=== PATIENT | female | born 1990 | race Caucasian/White ===

== ENCOUNTER 2017-12-28 17:53 | Emergency (ER) | payer BC, OTHER ==
[2017-12-28 18:02] VITALS: BP 112/76
[2017-12-28] MEDS ORDERED: KETOROLAC 15 MG/1 ML SDV ONE (18:24)
[2017-12-28] MEDS ORDERED: KETOROLAC 30 MG/1 ML SDV IM ONE (18:27)
--- NOTE | 2017-12-28 18:49 | EDPHY ---
H & P Time Seen by Provider: 12/28/17 18:00 HPI/ROS: CHIEF COMPLAINT: Back pain History by patient HISTORY OF PRESENT ILLNESS: 27-year-old woman with a history of prior episodes of acute back pain presents complaining of severe bilateral lower back pain which began yesterday when she lifted her 2-year-old daughter and felt that her "back went out". Patient states she had a similar episode 2 weeks ago where she felt like she threw her back out but this had resolved until yesterday. She has had similar episodes in the past last 1 was over 2 years ago. She denies any fever chills or nausea or vomiting. She denies any dysuria urgency frequency or hematuria. She has some chronic stress incontinence but denies any loss of perineal sensation or bowel incontinence. She has had some numbness to her bilateral lateral thighs but no numbness or tingling below her knees. Pain is worse with almost any movement and particularly when she changes position. There is no good position of relief. She has taken ibuprofen and Flexeril but she had left over from her prior episode with minimal relief. She denies any injection drug use. She is not on steroids and does not have diabetes. Patient works as an rn new graduate. REVIEW OF SYSTEMS: As in HPI, and all other systems reviewed and are negative Smoking Status: Never smoked Physical Exam: General Appearance: Alert, uncomfortable appearing, nontoxic. Head: Normocephalic, atraumatic Eyes: Pupils equal and round, no pallor or injection. ENT, Mouth: Mucous membranes moist. Neck: No bony tenderness, full range of motion Gastrointestinal: Abdomen is soft and nontender, no masses, bowel sounds normal. Neurological: Awake, alert and oriented x 3, no pronator drift, normal gait, no pronator drift, DTRs 2+ and equal bilaterally in knees and unable to obtain ankle reflexes bilaterally, positive ipsilateral hip pain with straight leg raise, perianal sensation intact Back: Mild sacral tenderness, bilateral paraspinous muscle tenderness in lower lumbosacral area, no CVA tenderness, normal gait Skin: Warm and dry, no rashes. Musculoskeletal: Neck is supple, FROM, nontender. Extremities: symmetrical, full range of motion. Psychiatric: Patient has normal affect, there is no agitation. Constitutional: Initial Vital Signs Temperature (C) 36.7 C 05/20/18 17:58 Heart Rate 84 12/28/17 17:58 Respiratory Rate 18 12/28/17 17:58 Blood Pressure 112/76 12/28/17 17:58 O2 Sat (%) 97 12/28/17 17:58 O2 Delivery Mode Room Air Allergies/Adverse Reactions: amoxicillin Allergy (Verified 12/28/17 17:58) erythromycin base Allergy (Verified 12/28/17 17:58) latex Allergy (Verified 12/28/17 17:58) Penicillins Allergy (Verified 12/28/17 17:58) Home Medications: Medication Instructions Recorded Lidocaine [Lidoderm] 1 each TP DAILY PRN #30 adh..patch 12/28/17 Meloxicam 7.5 mg PO DAILY #10 tablet 12/28/17 Methocarbamol [Robaxin 500 mg (*)] 1,000 mg PO QID PRN #30 tab 12/28/17 Carie 28 Tablet 12/28/17 MDM/Departure - MDM Medications Given: Discontinued Medications Ketorolac Tromethamine (Toradol) 15 mg IM EDNOW ONE Stop: 12/28/17 18:28 Last Admin: 12/28/17 18:33 Dose: 15 mg ED Course/Re-evaluation: 27-year-old woman presents with acute episode of low back pain similar to prior episodes without neurologic compromise or any red flag signs or symptoms. There is no indication for acute imaging today. I discussed this with the patient her . Patient was given a dose of IM Toradol. We discussed home care. Patient requested a prescription for a standing desk at work and she was given a note for this. She will be discharged home with Robaxin, meloxicam and topical lidocaine patches. I recommend follow up with her primary care physician a week to 10 days if her symptoms persist to discuss need for physical therapy and/or imaging. We also discussed return precautions. - Depart Disposition: Home, Routine, Self-Care Clinical Impression: Acute low back pain Qualifiers: Back pain laterality: bilateral Sciatica presence: without sciatica Qualified Code(s): M54.5 - Low back pain Condition: Good Instructions: Low Back Strain (ED) Additional Instructions: You were seen by Dr. Dot Gibosn today. Take meloxicam once daily for pain. Use topical lidocaine patches for pain. You may also take Robaxin if needed as a muscle relaxant. Do not drive or operate heavy machinery while taking this medication. Follow up with her primary care physician in 7-10 days if symptoms persist. Return for any worsening, including but not limited to loss of bowel or bladder control, numbness or weakness in her lower extremities, fever, uncontrolled pain or new concerns. Stand Alone Forms: Work Limited Duty Prescriptions: Lidocaine [Lidoderm] 1 each TP DAILY PRN #30 adh..patch PRN Reason: pain Meloxicam 7.5 mg PO DAILY #10 tablet Methocarbamol [Robaxin 500 mg (*)] 1,000 mg PO QID PRN #30 tab PRN Reason: neck spasm/pain Referrals: Emilee Jones DO [Primary Care Provider] - As per Instructions
== END 2017-12-28 18:50 | disposition home or self-care (01) ==
LOC: CED 17:53
DX: M54.5 Low back pain (principal); Z91.040 Latex allergy status
CPT/HCPCS: J1885